=== PATIENT | male | born 1985 | race Caucasian/White ===

== ENCOUNTER 2019-08-09 11:19 | Emergency (ER) | payer BC ==
[2019-08-09 11:23] VITALS: BP 129/87; PULSE 69; TEMP 98.8; BMI 31.9
--- NOTE | 2019-08-09 11:35 | PDOC ---
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 The patient has (+) exposure to coronavirus, mostly admitted patients. (-) Recent travel. They are concerned they have coronavirus and present for testing. (-) difficulty breathing, shortness of breath, chest pain, lightheadedness, dizziness nausea, vomiting, and diarrhea. Other 12 point ROS reviewed and negative. EXAM: General: NAD, well-appearing, AAO x3. ENT: No rhinorrhea or nasal congestion. Neck: FROM, no midline tenderness Lungs: Clear to auscultation bilateral without wheezes rales or rhonchi. Normal excursion. Patient is able to speak in full sentences. Heart: Regular rate and rhythm, S1-S2 present, no murmurs rubs or gallops. Abdomen: Non-distended MSK/Extremities: no decreased ROM, no obvious deformities. No cyanosis Neuro: Normal gait, cranial nerves II through XII grossly intact. SKIN: No rashes, bruising. Color normal appering A/P: Cough Patient has no past medical history, but pt is a health care worker Patient does not meet criteria for testing at this time. We will refer the patient to outpatient testing clinics in the [facility] for further monitoring of their symptoms. Strict return precautions given. Instructed that if they should have shortness of breath, chest pain or difficulty breathing to return to the emergency room for further management and treatment. Recommend self-isolation for 14 days given symptoms. Discharge home I discussed the physical exam findings, ancillary test results and final diagnoses with the patient. I answered all of the patient's questions. The patient was satisfied with the care received and felt comfortable with the discharge plan and treatment plan. The Patient agrees to follow up with the [facility] physician/specialist within 24-72 hours. Return precautions were given. 08/09/19 11:36 Discharge Disposition - Diagnosis Chills - Discharge Dispostion Disposition: HOME Condition at time of disposition: Stable Decision to Admit order: No - Referrals Referrals: Henrry Murray MD [Primary Care Provider] - - Patient Instructions Printed Discharge Instructions: [facility]-Coronavirus Instructions - Post Discharge Activity Work/School Note: Back to Work
== END 2019-08-09 11:53 | disposition home or self-care (01) ==
LOC: JER 11:19
DX: R05 Cough (principal); R68.83 Chills (without fever); Z20.828 Contact with and (suspected) exposure to other viral communicable diseases; Z88.0 Allergy status to penicillin
CPT/HCPCS: 87804; 87807; 99283-25; U0001

== ENCOUNTER 2022-02-22 10:03 | Emergency (ER) | payer BC, OTHER ==
[2022-02-22] MEDS ORDERED: SODIUM CHLORIDE 0.9% 500 ML INFUS.BAG IV ONE (10:20)
[2022-02-22] MEDS ORDERED: METOCLOPRAMIDE HCL INJECTION 10 MG/2 ML VIAL IVPUSH ONE (10:20)
[2022-02-22] MEDS ORDERED: ACETAMINOPHEN 1000 MG/100 ML BAG IVPB ONE (10:21)
[2022-02-22] MEDS ORDERED: METOCLOPRAMIDE HCL INJECTION 10 MG/2 ML VIAL IVPB ONE (10:22)
[2022-02-22 10:23] VITALS: BMI 32.1
[2022-02-22] MEDS ORDERED: METOCLOPRAMIDE HCL INJECTION 10 MG/2 ML VIAL ONE (10:25)
[2022-02-22] MEDS ORDERED: ACETAMINOPHEN INJECTION 100 ML IVPB ONE (10:25)
[2022-02-22 11:15] LABS: INR 0.86 (0.83-1.09); PROTHROMBIN TIME (PATIENT) 9.9 SEC (9.7-13.0)
[2022-02-22 11:18] LABS: ACTIVATED PTT 27.8 SECONDS (25.2-36.5); HEMATOCRIT 39.3 % (35.4-49); HEMOGLOBIN 13.2 G/dL (11.7-16.9); MCH 25.2 pg (25.7-33.7); MCHC 33.5 g/dl (32.0-35.9); MEAN CELL VOLUME 75.2 fl (80-96); MEAN PLT VOLUME 7.6 fl (7.5-11.1); PLATELET COUNT 250.3 10^3/uL (134-434); RBC 5.22 10^6/uL (4.00-5.60); RDW 16.3 % (11.9-15.9); WHITE BLOOD COUNT 8.4 10^3/uL (4.0-10.8)
[2022-02-22 11:21] VITALS: BP 115/73; PULSE 70; RESP 15; TEMP 98
[2022-02-22 11:26] LABS: BILIRUBIN,TOTAL 0.6 mg/dl (0.2-1); CREATININE 0.8 mg/dl (0.55-1.3); TOT PROT 6.9 g/dl (6.4-8.2)
[2022-02-22 11:31] LABS: PLATELET ESTIMATE ADEQUATE
[2022-02-22 14:56] LABS: IRON SERUM 123 ug/dL (50-175); TOTAL IRON BINDING CAPACITY 345 ug/dL (250-450)
== END 2022-02-22 11:33 | disposition home or self-care (01) ==
LOC: FER 10:03
PROC: 3E033NZ Introduction of Analgesics, Hypnotics, Sedatives into Peripheral Vein, Percutaneous Approach (ICD-10-PCS; principal; 2022-02-22)
PROC: 3E033GC Introduction of Other Therapeutic Substance into Peripheral Vein, Percutaneous Approach (ICD-10-PCS; 2022-02-22)
DX: R51.9 Headache, unspecified (principal)
CPT/HCPCS: 0241U-QW; 36415; 80053; 82728; 83540; 83550; 83615; 84439; 84443; 84466; 84481; 85027; 85610; 85651; 85730; 86140; 86618; 87799; 99284-25